=== PATIENT | female | born 1975 | race African-American/Black ===

== ENCOUNTER 2018-09-18 18:00 | Inpatient (IN) | payer MEDICAID ==
[~2018-09-18] VITALS: Ht 162.6 cm; Wt 55.3 kg
[2018-09-18] MEDS ORDERED: RISPERDAL0.25 MG ORAL (18:06)
[2018-09-18] MEDS ORDERED: FUROSEMIDE20 M1 ORAL (18:06)
[2018-09-18] MEDS ORDERED: QUETIAPINE FUMA25 MG ORAL (18:06)
--- NOTE | 2018-09-18 18:11 | Emergency Room Report ---
History of Present Illness General Chief Complaint: Dyspnea/Respdistress Source: Patient, EMS Present Illness HPI Patient presents with chest pain and dyspnea for 2 days. The pain is pressure and pleuritic. She has a history of COPD and asthma. She is been having a productive cough. Paramedics found her in respiratory distress with O2 saturation of less than 90%. They started her on CPAP in the field. The patient was satting at 100% with this. Apparently she refused IV. They gave her a spray of nitroglycerinthey had a diastolic of 140. The patient was somewhat improved with the CPAP and the nitroglycerin but is still complaining about chest pain. She also says that she has not been eating for the last day. She denies any vomiting or diarrhea. Allergies: Coded Allergies: No Known Allergies (Unverified , 09/18/18) Patient History Past Medical History: see triage record Social History: Reports: smoking Social History Narrative From home Reviewed Nursing Documentation: PMH: Agreed; PSxH: Agreed Nursing Documentation-PMH Past Medical History: No History, Except For Hx Asthma: Yes Hx Diabetes: Yes Physical Exam Vital Signs Date Time Temp Pulse Resp B/P (MAP) Pulse Ox O2 Delivery O2 Flow Rate FiO2 09/18/18 18:03 98.1 140 18 220/90 (133) 100 Bi-pap ENT: moist mucus membranes Respiratory: no retraction, respiratory distress, accessory muscle use, wheezing, expiration, inspiration Cardiovascular #1: no edema, tachycardia Procedures Critical Care Time Critical Care Time Total Critical Care Time: 60 min bedside evaluation and treatment excludes procedures (EKG). Reason for critical care: NSTEMI, hypertensive crisis, bronchospasm and respiratory distress Possible complications: hypotension, hypertension, PA, shock, arrhythmias, metabolic acidosis, end organ damage, respiratory failure. Interventions: Breathing treatments, repeated exams, aspirin, Ativan, several antihypertensive agents and control of hypertensive crisis. Course: Patient presented with respiratory distress on CPAP. Tory wheezes instead of CHF found. Solu-Medrol and breathing treatments initiated. Patient with variable compliance. Improving with breathing treatments and oxygen. Non- STEMI. Aspirin administered. Hypertensive crisis treated with Catapres and Lopressor. Presumptive cocaine abuse although urine not produced. Multiple repeated exams and working with the patient. And Ativan administered. Patient improved. Discussed with transfer MD and decision to keep the patient as unstable for transfer at this time. Consultations: nursing staff, EMS, transfer MD, admitting MD Performed by: Dr. Martinez Tolerated well condition = critical Medical Decision Making Diagnostic Impression: Primary Impression: COPD exacerbation Additional Impressions: Hypertensive urgency Elevated troponin ER Course Patient presents with respiratory distress with a history of COPD and also chest pain. Differential includes acute myocardial infarction, pneumonia, COPD exacerbation, hypertensive urgency amongst others. Clinically the patient does not have a pulmonary embolus however this still is a consideration. She has significant bronchospasm at this time. The patient will be treated with Solu- Medrol, breathing treatments. Her blood pressure will be monitored and will be treated if necessary. Is in moderate respiratory distress at this time but improving. Consideration of starting BiPAP if necessary. At the moment 100% nonrebreather mask might be adequate. BP critically high. Patient on Clonidine and amlodipine. Will give catapres and labetalol. (Concern over possible cocaine.) EKG LVH, no PA. CXR no infiltrate, globular heart. WBC normal. Elevated H/H. Called with elevated troponin. Aspirin given. CMP with minimal low potassium. Min elevated BNP. Resps somewhat improved. BP being treated. Ativan given for anxiety and slight agitation. 18:[address] Wheat and determined unstable for transfer. Patient not produce urine in ED. Improved BP and sleeping. Still exp wheezes, but no respiratory distress. Admit SDU Dr. Martinez. Laboratory Tests Test 09/18/18 18:10 White Blood Count 6.7 K/UL (4.8-10.8) Red Blood Count 5.82 M/UL (4.20-5.40) H Hemoglobin 16.5 G/DL (12.0-16.0) H Hematocrit 53.0 % (37.0-47.0) H Mean Corpuscular Volume 91 FL (80-99) Mean Corpuscular Hemoglobin 28.4 PG (27.0-31.0) Mean Corpuscular Hemoglobin Concent 31.2 G/DL (32.0-36.0) L Red Cell Distribution Width 13.1 % (11.6-14.8) Platelet Count 268 K/UL (150-450) Mean Platelet Volume 6.9 FL (6.5-10.1) Neutrophils (%) (Auto) 73.3 % (45.0-75.0) Lymphocytes (%) (Auto) 14.8 % (20.0-45.0) L Monocytes (%) (Auto) 7.9 % (1.0-10.0) Eosinophils (%) (Auto) 3.0 % (0.0-3.0) Basophils (%) (Auto) 1.0 % (0.0-2.0) Prothrombin Time 10.5 SEC (9.30-11.50) Prothrombin Time INR 1.0 (0.9-1.1) PTT 26 SEC (23-33) Sodium Level 139 MMOL/L (136-145) Potassium Level 3.4 MMOL/L (3.5-5.1) L Chloride Level 102 MMOL/L (98-107) Carbon Dioxide Level 31 MMOL/L (21-32) Anion Gap 6 mmol/L (5-15) Blood Urea Nitrogen 19 mg/dL (7-18) H Creatinine 1.1 MG/DL (0.55-1.30) Estimate Glomerular Filtration Rate 54.2 mL/min (>60) Glucose Level 113 MG/DL (74-106) H Calcium Level 9.6 MG/DL (8.5-10.1) Total Bilirubin 0.4 MG/DL (0.2-1.0) Aspartate Amino Transferase (AST) 24 U/L (15-37) Alanine Aminotransferase (ALT) 28 U/L (12-78) Alkaline Phosphatase 88 U/L (46-116) Total Creatine Kinase 107 U/L (26-308) Creatine Kinase MB 3.0 NG/ML (0.0-3.6) Creatine Kinase MB Relative Index 2.8 Troponin I 0.130 ng/mL (0.000-0.056) Pro-B-Type Natriuretic Peptide 1753 pg/mL (0-125) H Total Protein 7.8 G/DL (6.4-8.2) Albumin 3.5 G/DL (3.4-5.0) Globulin 4.3 g/dL Albumin/Globulin Ratio 0.8 (1.0-2.7) L Lipase 188 U/L (73-393) EKG Diagnostic Results Rate: normal Rhythm: NSR ST Segments: no acute changes - LVH ASA given to the pt in ED: Yes Rhythm Strip Diag. Results EP Interpretation: yes Rhythm: NSR, no PVC's, no ectopy Chest X-Ray Diagnostic Results Chest X-Ray Diagnostic Results : Chest X-Ray Ordered: Yes # of Views/Limited/Complete: 1 View Indication: Other EP Interpretation: Yes Interpretation: no consolidation, no effusion, no pneumothorax, other - nipples Impression: Other Electronically Signed by: Electronically signed by James Martinez MD Last Vital Signs Date Time Temp Pulse Resp B/P (MAP) Pulse Ox O2 Delivery O2 Flow Rate FiO2 09/18/18 23:50 98.1 68 24 116/76 97 Nasal Cannula 3.0 09/18/18 22:22 100 Status: improved Disposition: ADMITTED INPATIENT Condition: Critical James Martinez MD Sep 18, 2018 18:11
--- NOTE | 2018-09-18 18:13 | NUR ---
ED Nurse Note: PT FROM HOME BROUGHT IN BY EMS DUE TO SOB AND COUGHING. PT CAME IN WITH CPAP UPON ARRIVAL. 1 NTG SPRAY GIVEN BY EMS. HX OF COPD AND PT ADMITS TO SMOKING CIGARETTES. AAO X4, FOLLOWS COMMANDS, WITH LABORED BREATHING AT REST AND UNABLE TO LIE FLAT ON HER BED. PT IS RESTLESS AND PALE. NON REBREATHER APPLIED AT 15LPM OXYGEN. DR GUTIERREZ AND RT AT THE BED SIDE.
[2018-09-18] MEDS ORDERED: Morphine Sulfate 2mg/ml Inj(IV/IM USE ONLY) IVP ONE (18:15)
[2018-09-18] MEDS ORDERED: Ipratropium 0.02% Inh Soln 2.5ml UD HHN ONE (18:15)
[2018-09-18] MEDS: Albuterol ud Inhalation HHN SCH ×3 (18:16→18:45)
[2018-09-18 18:22] VITALS: BP 210/147
--- NOTE | 2018-09-18 18:23 | NUR ---
ED Nurse Note: COLLECTED BLOOD SPECIMEN THEN SENT.
[2018-09-18 18:35] LABS: HEMOGLOBIN 16.5 G/DL (12.0-16.0); LYMPHOCYTES % (AUTO) 14.8 % (20.0-45.0); MEAN CORPUSCULAR VOLUME 91 FL (80-99); MONOCYTES % (AUTO) 7.9 % (1.0-10.0); NEUTROPHILS % (AUTO) 73.3 % (45.0-75.0); PLATELET COUNT 268 K/UL (150-450); RED BLOOD COUNT 5.82 M/UL (4.20-5.40); RED CELL DISTRIBUTION WIDTH 13.1 % (11.6-14.8); WHITE BLOOD COUNT 6.7 K/UL (4.8-10.8)
[2018-09-18] MEDS ORDERED: Solu-MEDROL 125mg Inj IVP ONE (18:45)
[2018-09-18] MEDS ORDERED: Labetalol 5mg/ml 20ml vial IV ONE (18:45)
[2018-09-18 18:49] LABS: ANION GAP 6 mmol/L (5-15); BLOOD UREA NITROGEN 19 mg/dL (7-18); CALCIUM 9.6 MG/DL (8.5-10.1); CARBON DIOXIDE 31 MMOL/L (21-32); CHLORIDE 102 MMOL/L (98-107); CREATININE 1.1 MG/DL (0.55-1.30); POTASSIUM 3.4 MMOL/L (3.5-5.1); SODIUM 139 MMOL/L (136-145)
--- NOTE | 2018-09-18 18:49 | NUR ---
ED Nurse Note: DR GUTIERREZ IS OKAY FOR PT TO DRINK. MILK AND JUICES PROVIDED. PT STILL ON BREATHING TREATMENT.
[2018-09-18] MEDS ORDERED: LORazepam Inj 2mg/ml 1ml IV ONE (19:00)
[2018-09-18 19:02] LABS: ALANINE AMINOTRANSFERASE 28 U/L (12-78); ALBUMIN 3.5 G/DL (3.4-5.0); ALBUMIN/GLOBULIN RATIO 0.8 (1.0-2.7); ALKALINE PHOSPHATASE 88 U/L (46-116); ASPARTATE AMINO TRANSFERASE 24 U/L (15-37); BILIRUBIN,TOTAL 0.4 MG/DL (0.2-1.0); CREATINE KINASE 107 U/L (26-308)
--- NOTE | 2018-09-18 19:06 | NUR ---
HAND-OFF: Report given to JOS BELLO.
--- NOTE | 2018-09-18 19:10 | NUR ---
ED Nurse Note: received report from ACE Wood and assumed care, pt resting at this time, will cont monitor.
--- NOTE | 2018-09-18 19:33 | NUR ---
ED Nurse Note: pt refusing to be changed into gown, refusing bp, refusing to o2, RT contacted for breathing tx. will cont monitor.
[2018-09-18 20:08] VITALS: BP 130/103
[2018-09-18 21:00] VITALS: BP 118/75
--- NOTE | 2018-09-18 21:30 | NUR ---
ED Nurse Note: pt sleeping at this time, vss, safety precautions in place, will cont monitor. pt continue to refusing cpap when awake.
[2018-09-18 22:22] VITALS: BP 115/76
--- NOTE | 2018-09-18 23:00 | NUR ---
ED Nurse Note: pt refused to go over belongings, pt refused to be swabed. pt educated but refused.
--- NOTE | 2018-09-18 23:45 | NUR ---
ED Nurse Note: REPORT GIVEN TO ACE ALMENDAREZ
--- NOTE | 2018-09-18 23:50 | NUR ---
ED Nurse Note: pt transferred to SDU with belonging list, pt vss, o2 97% on nc 3 L/min, NSR on cardiac tech, pt sent w/ belongings, endorsed care to ACE Mooney.
[2018-09-19] VITALS: BP 147/95
--- NOTE | 2018-09-19 | NUR ---
NURSE NOTES: Received patient from ACE Whalen of ED.patient is awake and responsive to verbal commands. patient denies pain at this time. patient is on 3 L O2 via NC, sat at 95%. IV site is patent and intact. patient refuses to have belongings checked. she also refuses to wear patient gown at this time. Vital signs taken, cardiac specialist showing sinus rhythm at this time. bed in lowest position and locked, siderails up X3, call light within reach. will continue to monitor.
[2018-09-19] MEDS ORDERED: LORazepam 0.5mg tab ORAL PRN (00:15)
[2018-09-19] MEDS: Metoprolol Tartrate 50mg tab ORAL SCH ×2 (00:15→08:37)
[2018-09-19] MEDS ORDERED: HydrALAZINE 25mg tab ORAL PRN (00:15)
[2018-09-19] MEDS ORDERED: Albuterol/Ipratropium 3ml neb HHN PRN (00:15)
--- NOTE | 2018-09-19 00:15 | NUR ---
NURSE NOTES: received admission orders from Dr. Macario. will continue with plan of care.
--- NOTE | 2018-09-19 01:20 | NUR ---
NURSE NOTES: patient refusing to take medications. she continues to refuse to have her belongings checked.
--- NOTE | 2018-09-19 04:10 | NUR ---
NURSE NOTES: patient refused lab draw and continues to refuse prescribed potassium and metoprolol. explained risks and benefits of refusal of lab draw and of medications. patient verbalized understanding and still refuses. will inform MD.
--- NOTE | 2018-09-19 07:20 | NUR ---
NURSE NOTES: RECEIVED PT FROM ERICKSON BELLO OF [facility] SHIFT STAFF.PT AWAKE AND ALERT ORIENTED X4, DEMANDING FOR BREAKFAST TRAY. PT VERY AGGRESSIVE AND VERBALLY ABUSIVE WITH ALL MEDICAL STAFF.PT ENCOURAGED TO TAKE AM PO MED,S.PT ABLE TO TO TAKE ALL AM PO MED,S PER M.D ORDERS,PT REFUSE BLOOD SUGAR CHECK. WILL CONT TO MONITOR.
--- NOTE | 2018-09-19 07:40 | NUR ---
HAND-OFF: Report given to ACE Castillo. patient is in stable condition.
[2018-09-19 08:00] VITALS: BP 154/109
[2018-09-19 08:37] VITALS: BP 154/102
[2018-09-19] MEDS ORDERED: Levemir Flexpen SUBQ SCH (09:00)
[2018-09-19] MEDS ORDERED: Heparin 5000 units/ml inj SUBQ SCH (09:00)
[2018-09-19] MEDS ORDERED: Aspirin Baby 81mg ORAL SCH (09:00)
--- NOTE | 2018-09-19 10:36 | History & Physical ---
History and Physical History & Physicial History and Physical HPI Patient is a 43 year old woman who presents with chest pain and dyspnea for 2 days. Has past history of Asthma, Hypertension and DiabetesThe pain is pressure and pleuritic. She has a history of COPD and asthma. She is been having a productive cough. Paramedics found her in respiratory distress with O2 saturation of less than 90%. Noted to have Hypertensive Urgency She denies any vomiting or diarrhea. Allergies: No Known Allergies Past Medical History: Hypertension, Asthma, Diabetes Social History: smoking Physical Exam Vital Signs Noted Constitutional: No respiratory distress, WDWN ENT: moist mucus membranes Respiratory: no retraction, no respiratory distress, no accessory muscle use, mild wheezing on expiration Cardiovascular: no edema, tachycardia, normal HS Abdomen: SNTND Extrem: no edema/rashes HOOK PULLER: Intact Impression COPD exacerbation Hypertensive urgency Elevated troponin Diabetes Previous Psychiatric Diagnosis Plan IV Solu-Medrol - continue Continue breathing treatments Trend labs ISS Cardiology consult Psychiatry consult Antihypertensives PPX . Laboratory Tests Test 09/18/18 18:10 White Blood Count 6.7 K/UL (4.8-10.8) Red Blood Count 5.82 M/UL (4.20-5.40) H Hemoglobin 16.5 G/DL (12.0-16.0) H Hematocrit 53.0 % (37.0-47.0) H Mean Corpuscular Volume 91 FL (80-99) Mean Corpuscular Hemoglobin 28.4 PG (27.0-31.0) Mean Corpuscular Hemoglobin Concent 31.2 G/DL (32.0-36.0) L Red Cell Distribution Width 13.1 % (11.6-14.8) Platelet Count 268 K/UL (150-450) Mean Platelet Volume 6.9 FL (6.5-10.1) Neutrophils (%) (Auto) 73.3 % (45.0-75.0) Lymphocytes (%) (Auto) 14.8 % (20.0-45.0) L Monocytes (%) (Auto) 7.9 % (1.0-10.0) Eosinophils (%) (Auto) 3.0 % (0.0-3.0) Basophils (%) (Auto) 1.0 % (0.0-2.0) Prothrombin Time 10.5 SEC (9.30-11.50) Prothrombin Time INR 1.0 (0.9-1.1) PTT 26 SEC (23-33) Sodium Level 139 MMOL/L (136-145) Potassium Level 3.4 MMOL/L (3.5-5.1) L Chloride Level 102 MMOL/L (98-107) Carbon Dioxide Level 31 MMOL/L (21-32) Anion Gap 6 mmol/L (5-15) Blood Urea Nitrogen 19 mg/dL (7-18) H Creatinine 1.1 MG/DL (0.55-1.30) Estimate Glomerular Filtration Rate 54.2 mL/min (>60) Glucose Level 113 MG/DL (74-106) H Calcium Level 9.6 MG/DL (8.5-10.1) Total Bilirubin 0.4 MG/DL (0.2-1.0) Aspartate Amino Transferase (AST) 24 U/L (15-37) Alanine Aminotransferase (ALT) 28 U/L (12-78) Alkaline Phosphatase 88 U/L (46-116) Total Creatine Kinase 107 U/L (26-308) Creatine Kinase MB 3.0 NG/ML (0.0-3.6) Creatine Kinase MB Relative Index 2.8 Troponin I 0.130 ng/mL (0.000-0.056) Pro-B-Type Natriuretic Peptide 1753 pg/mL (0-125) H Total Protein 7.8 G/DL (6.4-8.2) Albumin 3.5 G/DL (3.4-5.0) Globulin 4.3 g/dL Albumin/Globulin Ratio 0.8 (1.0-2.7) L Lipase 188 U/L (73-393) EKG: Rate: normal Rhythm: NSR ST Segments: no acute changes - LVH Chest X-Ray: no consolidation, no effusion, no pneumothorax James Macario MD Sep 19, 2018 10:36
[2018-09-19] MEDS ORDERED: NovoLOG Insulin Flexpen SUBQ SCH (11:30)
--- NOTE | 2018-09-19 11:41 | Diagnostic Imaging Report ---
Indication: Chest pain Comparison: None A single view chest radiograph was obtained. Findings: Mild cardiomegaly demonstrated. Sternotomy noted. The hilar vessels are prominent. Lungs are clear. Bones are unremarkable. IMPRESSION: Mild cardiomegaly
--- NOTE | 2018-09-19 11:42 | NUR ---
NURSE NOTES: PT VERY COMBATIVE AGRESSIVE AND VERBALLY ABUSIVE REFUSING BS CHECK DR MASON MADE AWARE AND NOTIFIED.
--- NOTE | 2018-09-19 12:29 | NUR ---
NURSE NOTES: PT SIGNED AMA ,DR MEDEIROS MADE AWARE AND NOTIFIED.REMOVED H.L.PT LEFT THE HOSPITAL ON STABLE CONDITIONS.
--- NOTE | 2018-09-19 13:07 | Cardiology Report ---
APPROVED REPORT EKG Measurement Heart [id number] Normal sinus rhythm Left axis deviation Abnormal ECG
--- NOTE | 2018-09-19 20:30 | Consultation ---
DATE OF CONSULTATION: 09/19/2018 CARDIOLOGY CONSULTATION CONSULTING PHYSICIAN: James Chauhan M.D. REFERRING PHYSICIAN: Enrique Martinez M.D. REASON FOR CONSULTATION: Malignant hypertension and chest pain. HISTORY OF PRESENT ILLNESS: This is a 43-year-old homeless female. She has a history of cocaine abuse. She presented to the emergency room with chest pain and cough. She was noted to have hypoxia and uncontrolled blood pressure. She was admitted to the hospital and started on antihypertensive and respiratory hygiene with nasal oxygen. PAST MEDICAL HISTORY: Includes hypertension, asthma and diabetes. ALLERGIES: None. MEDICATIONS: None. SOCIAL HISTORY: Notable for smoking and substance abuse. No noted alcohol abuse. FAMILY HISTORY: Not known. REVIEW OF SYSTEMS: The patient is not cooperative. PHYSICAL EXAMINATION: GENERAK: She is agitated and refuses vitals at times. She is kicking me and does not allow me a full examination. VITAL SIGNS: Vitals are reviewed. NECK: Jugular venous pressure appears normal. LUNGS: Coarse breath sounds and rhonchi. CARDIAC: Regular rhythm and rate. Normal S1, S2 with a fourth heart sound. No murmur. ABDOMEN: Grossly soft. EXTREMITIES: There is no edema. LABORATORY AND DIAGNOSTIC DATA: EKG revealed sinus rhythm with leftward axis. Labs notable for white count 6.7 and hemoglobin 16.5. Potassium 3.4, BUN 19, and creatinine 1.1. Troponin 0.13. Pro-natriuretic peptide 1753. Toxicology screen is positive for cocaine by report. IMPRESSION: 1. Hypertensive urgency. 2. Myocardial ischemia. 3. Acute diastolic congestive heart failure. 4. Noncompliance. 5. Hypokalemia. 6. Chronic obstructive pulmonary disease exacerbation. 7. Cocaine intoxication. PLAN: 1. Anti-platelet therapy. 2. Potassium replacement. 3. Calcium blockers. 4. Counseling regarding the risks of cocaine abuse when she is more coherent. 5. Cardiac monitoring. 6. We will follow up and confirm toxicology result. James Chauhan M.D. DR: FINA JOB#: [id number] CC:
--- NOTE | 2018-09-20 13:50 | Discharge Summary ---
Discharge Summary Discharge Summary _ DATE OF ADMISSION: 09/18/2018 DATE OF DISCHARGE: 09/19/2018 Patient left AGAINST MEDICAL ADVICE REASON FOR ADMISSION: 43 years old female, homeless, with past medical history of asthma/COPD, diabetes mellitus,cocaine abuse, presented to emergency department with chest pain and dyspnea for 2 days. Chest pain reported pressure-like and pleuritic. Patient reported productive cough. No hemoptysis. Patient was found by paramedics in respiratory distress and hypoxemia with O2 saturation less than 90%. Patient was started on the CPAP in the field with pulse oximetry reaching 100 %. Patient initially declined IV . Patient received a spray of nitroglycerin( at that time diastolic blood pressure was in 140). Patient somewhat improved with CPAP and nitroglycerin, but continued to complain about chest pain. Patient also reported that she was not eating for the last day. She denied vomiting or diarrhea. Upon presentation to emergency department patient was tachycardic with heart rate of 140 and severely elevated blood pressure 220/90. At that time patient was on BiPAP with pulse oximetry 100%. Laboratory work-up revealed no leukocytosis, stable hemoglobin and hematocrit. Stable platelet count. Potassium 3.4. CO2 31. BUN 19, creatinine 1.1. Glucose 113. Stable LFT. Lipase 188. Troponin 0.13. Pro BNP 1753. EKG revealed sinus rhythm, no acute ischemic changes. Albumin 3.5. Chest x-ray demonstrated mild cardiomegaly. In emergency department patient received Catapres and labetalol. Aspirin was given due to elevated troponin. Nebulizing treatment with bronchodilator provided. Ativan provided for anxiety and slight agitation . Blood pressure improved , and patient was admitted to stepdown unit for further management. CONSULTANTS: billboard mechanic [facility] COURSE: Patient admitted to stepdown unit. Patient started on IV steroids and empiric antibiotic. Supplemental oxygen titrated to keep pulse oximetry above 92%. Patient was able to be weaned from CPAP to oxygen via nasal cannula. Handheld nebulizing therapy with the bronchodilator provided. Incentive spirometry was encouraged. DVT and GI prophylaxis provided. Zigzag Elastic Attacher followed. Per billboard mechanic , patient started on antiplatelet therapy with aspirin . Potassium was replaced. Patient was continued to be monitored on cardiac monitoring.No acute ischemic changes noted. Antihypertensive medications were continued , including calcium channel jaden and clonidine. Patient started on low-dose of diuretic with close monitoring of volumes. Blood sugar was managed with sliding scale of insulin and long-acting Levemir Serial troponin were ordered. Urine toxicology screen was ordered due to concern of possible cocaine abuse. Psychiatric consult was requested. Patient became very agitated and abusive towards nursing staff and refused further care. She was awake, alert, and oriented. Patient decided to leave AGAINST MEDICAL ADVICE. The risks and consequences of signing AGAINST MEDICAL ADVICE were discussed with patient in detail. Patient verbalized understanding, nevertheless signed AMA form and left. FINAL DIAGNOSES: Hypertensive urgency COPD exacerbation Elevated troponin Myocardial ischemia Acute diastolic congestive heart failure Noncompliance Hypokalemia Cocaine intoxication and abuse, Diabetes mellitus History of psychiatric disorder I have been assigned to dictate discharge summary for this account. I was not involved in the patient's management. Amanda Dewey NP Sep 20, 2018 13:50
--- NOTE | 2018-09-21 08:03 | NUR ---
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 HYPERTENSIVE URGENCY VS: BP 210/140, P 140, T 98.1, RR 22, SpO2 100 on bi-pap IS:ZOFRAN 4mg IVP MORPHINE SULFATE 2mg CLONIDINE 0.2mg LABETALOL 10mg IV LORAZEPAM 1mg IVP SOLU-MEDROL 125mg ADMITTED TO CTU DCP: RETURN HOME
== END 2018-09-19 13:20 | disposition left against medical advice (07) | DRG 140 ==
LOC: EDBD 18:00 → EMR 18:12 → EDBEDREQ 18:57 → EDBEDREQSVC 18:57 → EDBEDREQ 23:39 → 2W 23:55
DX: J44.1 Chronic obstructive pulmonary disease with (acute) exacerbation (principal); I50.31 Acute diastolic (congestive) heart failure; E11.9 Type 2 diabetes mellitus without complications; I16.0 Hypertensive urgency; Z59.0 Homelessness; I25.9 Chronic ischemic heart disease, unspecified; I11.0 Hypertensive heart disease with heart failure; Z91.19 Patient's noncompliance with other medical treatment and regimen; F14.129 Cocaine abuse with intoxication, unspecified
CPT/HCPCS: 36415; 71045; 80053; 82550; 82553; 82962; 83690; 83880; 84484; 85025; 85610; 85730; 93005; 94640; 96374; 96375; 99291; J1815; J2405; J8499; S5561